=== PATIENT | female | born 1990 | race Caucasian/White ===

== ENCOUNTER 2016-08-06 21:38 | Emergency (ER) | payer MEDICAID ==
[~2016-08-06] VITALS: Ht 160 cm; Wt 100.0 kg
[2016-08-06 21:44] VITALS: Ht 160 cm; Wt 100.0 kg
[2016-08-07] MEDS ORDERED: SOD CHLORIDE 0.9% 1,000 ML IV STA (01:08)
[2016-08-07] MEDS ORDERED: morphine 4 MG/ML VIAL IV STA (01:08)
--- NOTE | 2016-08-07 01:14 | ERD ---
ER Documentation Chief Complaint Date/Time DATE: 08/07/16 TIME: 01:12 Chief Complaint BACK/ABD PAIN X3 DAYS +NAUSEA NO DIARRHEA. HPI 26-year-old female presents to emergency department for complaints of lower abdominal pain radiating into the left upper quadrant and bilateral lower back for 3 days, accompanied with nausea, describing the patient's sharp pain, 9/10 scale, not better or worse with anything. Patient denies any vomiting or diarrhea. Patient is the constipation. Patient did not take any medications to help with symptoms. Patient denies any fever or chills. ROS All systems reviewed and are negative except as per history of present illness. Medications Home Meds Reported Medications [none] Unknown Strength No Conflict Check 08/07/16 Allergies Allergies: Coded Allergies: No Known Allergy (Unverified , 08/06/16) PMhx/Soc Medical and Surgical Hx: pt denies Medical Hx, pt denies Surgical Hx FmHx Family History: No coronary disease, No diabetes, No other Physical Exam Vitals Vital Signs Date Time Temp Pulse Resp B/P Pulse Ox O2 Delivery O2 Flow Rate FiO2 08/06/16 21:44 98.7 84 20 160/90 98 Physical Exam GENERAL: The patient is well developed and appropriate for usual state of health, in no apparent distress. CHEST: Clear to auscultation bilaterally. There are no rales, wheezes or rhonchi. HEART: Regular rate and rhythm. No murmurs, clicks, rubs or gallops. No S3 or S4. ABDOMEN: Soft, generalized abdominal tenderness noted. Good bowel sounds. No rebound or guarding. No gross peritonitis. No gross organomegaly or masses. No Houston sign or McBurney point tenderness. BACK: No midline or flank tenderness. EXTREMITIES: Equal pulses bilaterally. There is no peripheral clubbing, cyanosis or edema. No focal swelling or erythema. Full range of motion. Grossly neurovascularly intact. NEURO: Alert and oriented. Cranial nerves 2-12 intact. Motor strength in all 4 extremities with 5/5 strength. Sensation grossly intact. Normal speech and gait. SKIN: There is no apparent rash or petechia. The skin is warm and dry. HEMATOLOGIC AND LYMPHATIC: There is no evidence of excessive bruising or lymphedema. No gross cervical, axillary, or inguinal lymphadenopathy. Result Diagram: 08/07/16 0135 08/07/16134 Results 24 hrs Laboratory Tests Test 08/07/16 01:15 08/07/16 01:35 Urine Color LT. YELLOW Urine Clarity CLEAR Urine pH 6.0 Urine Specific [place] 1.010 Urine Ketones NEGATIVE Urine Nitrite NEGATIVE Urine Bilirubin NEGATIVE Urine Urobilinogen 0.2 E.U./dL Urine Leukocyte Esterase NEGATIVE Urine Microscopic RBC 2-5/HPF Urine Microscopic WBC NONE SEEN/HPF Urine Squamous Epithelial Cells OCCASIONAL Urine Bacteria OCCASIONAL Urine Hemoglobin TRACE Urine Glucose NEGATIVE% Urine Total Protein NEGATIVE White Blood Count 13.310^3/ul Red Blood Count 4.9410^6/ul Hemoglobin 13.7g/dl Hematocrit 41.2% Mean Corpuscular Volume 83.4fl Mean Corpuscular Hemoglobin 27.7pg Mean Corpuscular Hemoglobin Concent 33.3g/dl Red Cell Distribution Width 13.2% Platelet Count 52345^3/UL Mean Platelet Volume 9.2fl Neutrophils % 61.6% Lymphocytes % 28.1% Monocytes % 8.5% Eosinophils % 0.9% Basophils % 0.5% Nucleated Red Blood Cells % 0.0/100WBC Neutrophils # 8.210^3/ul Lymphocytes # 3.810^3/ul Monocytes # 1.110^3/ul Eosinophils # 0.110^3/ul Basophils # 0.110^3/ul Nucleated Red Blood Cells # 0.010^3/ul Sodium Level 141mmol/L Potassium Level 3.5mmol/L Chloride Level 101mmol/L Carbon Dioxide Level 27mmol/L Anion Gap 17 Blood Urea Nitrogen 9mg/dl Creatinine 1.12mg/dl Glucose Level 91mg/dl Calcium Level 9.1mg/dl Total Bilirubin 0.2mg/dl Direct Bilirubin 0.00mg/dl Indirect Bilirubin 0.2mg/dl Aspartate Amino Transf (AST/SGOT) 26IU/L Alanine Aminotransferase (ALT/SGPT) 48IU/L Alkaline Phosphatase 89IU/L Total Protein 7.8g/dl Albumin 4.1g/dl Globulin 3.70g/dl Albumin/Globulin Ratio 1.10 Lipase 71U/L Current Medications Medications (Trade) Dose Ordered Sig/Zina Route PRN Reason Start Time Stop Time Status Last Admin Dose Admin Sodium Chloride (NS) 1,000 ml @ 1,000 mls/hr Q1H STAT IV 08/07/16 01:08 08/07/16 02:07 DC 08/07/16 01:55 Morphine Sulfate (morphine) 4 mg ONCE STAT IV 08/07/16 01:08 08/07/16 01:09 DC 08/07/16 01:56 Ondansetron HCl (Zofran Inj) 4 mg ONCE STAT IV 08/07/16 01:53 08/07/16 01:54 DC 08/07/16 01:55 Patient was given medication for pain here in emergency department, after treatment, patient verbalized feeling much better. Patient's pain is improved.Normal saline IV bolus was given here in emergency department for rehydration, patient tolerated IV fluids. PROCEDURE: CT Abdomen and pelvis without contrast. CLINICAL INDICATION: Abdominal pain. TECHNIQUE: CT scan of the abdomen and pelvis was performed on a multi- detector high-resolution CT scanner. Contiguous axial images were obtained from the lung bases to the ischial tuberosities without intravenous contrast. Coronal and sagittal reformatted images were also obtained. Images were reviewed on the PACS workstation. One or more of the following dose reduction techniques were used: - Automated exposure control. - Adjustment of the mA and/or kV according to patient size. - Use of iterative reconstruction technique. Exam CTD/vol = 23.33 mGy. Total exam DLP = 1526.71 mGy-cm. COMPARISON: None. FINDINGS: Evaluation of the lung bases demonstrates minimal bibasilar atelectasis. Abdomen: The liver is normal in size and diffusely low in attenuation consistent with fatty infiltration. There is no focal mass or dilatation of the biliary tree. The gallbladder is not distended. The spleen, pancreas and bilateral adrenal glands are within normal limits. Bilateral kidneys are normal in size with no contour deforming mass identified. There is a 1 mm calculus within the lower pole of the left kidney. There is mild left-sided hydronephrosis. There is no retroperitoneal adenopathy. The abdominal aorta is of normal caliber. There is no abnormal bowel wall thickening or distension. There is no bowel obstruction or free air. A normal appendix is identified. There is no diverticulosis or diverticulitis. There is no ascites. Pelvis: The bladder is unremarkable. There is a 5 x 4 mm calculus at the left ureterovesicular junction. The uterus and adnexa are within normal limits. There is an intrauterine device within the lower uterine segment. There is no significant pelvic adenopathy or free fluid. Evaluation of the osseous structures demonstrates no suspicious lytic or blastic lesion. IMPRESSION: Left ureterovesicular junction 5 x 4 mm calculus with mild left-sided hydronephrosis. Left renal calculus. Fatty infiltration of the liver. Intrauterine device within the lower uterine segment. .Stepan Morejon MD, MD Date Time Electronically viewed and signed by .Stepan Morejon MD, MD on 08/07/2016 03:18 .T/ CC: LAINE JUAREZ NP Procedures/MDM Medical Decision Making: Patient and this was like is consistent with a left renal colic. No severe hydronephrosis noted. No symptoms of any infected stone. There is low suspicion for abdominal emergencies at this time. Patients abdominal exam is normal at this time. Patients radiology exam does not show any abdominal emergencies at this time. There is low suspicion for appendicitis , cholecystitis, abdominal aortic aneurysms or peritonitis at this time. There is low suspicion for sepsis. Patient appears well and is hemodynamically stable. Disposition: Home. Condition: Stable Prescription Perkins, tamsulosin, Pyridium, Zofran Instructions: Patient is advised to take medications as prescribed. Patient is advised to rest, increase fluid intake and do urologist specialist regarding symptoms. Patient is advised that if symptoms are worse, severe abdominal pain, uncontrolled vomiting, high fever, severe flank pain, worst signs and symptoms, to return to the emergency department immediately. Otherwise, patient can follow up with primary care doctor in 5-7 days. Departure Diagnosis: Primary Impression: Renal colic on left side Condition: Stable Patient Instructions: Kidney Stone W/ Colic Additional Instructions: Patient is advised to take medications as prescribed. Patient is advised to rest, increase fluid intake and do urologist specialist regarding symptoms. Patient is advised that if symptoms are worse, severe abdominal pain, uncontrolled vomiting, high fever, severe flank pain, worst signs and symptoms, to return to the emergency department immediately. Otherwise, patient can follow up with primary care doctor in 5-7 days. LAINE JUAREZ NP August 07, 2016 01:14
[2016-08-07 01:50] LABS: ADD SCAN DIFF NO
[2016-08-07] MEDS ORDERED: ONDANSETRON 4 MG INJ IV STA (01:53)
[2016-08-07 01:56] LABS: BASOPHIL # 0.1 10^3/ul (0.0-0.1); BASOPHILS % 0.5 % (0.0-2.0); EOSINOPHILS # 0.1 10^3/ul (0.0-0.5); EOSINOPHILS % 0.9 % (0.0-7.0); HEMATOCRIT 41.2 % (37.0-47.0); HEMOGLOBIN 13.7 g/dl (12.0-16.0); LYMPHOCYTES # 3.8 10^3/ul (0.8-2.9); LYMPHOCYTES % 28.1 % (15.0-51.0); MEAN CORPUSCULAR HEMOGLOBIN 27.7 pg (29.0-33.0); MEAN CORPUSCULAR HGB CONC 33.3 g/dl (32.0-37.0); MEAN CORPUSCULAR VOLUME 83.4 fl (82.0-101.0); MEAN PLATELET VOLUME 9.2 fl (7.4-10.4); MONOCYTE # 1.1 10^3/ul (0.3-0.9); MONOCYTES % 8.5 % (0.0-11.0); NEUTROPHIL # 8.2 10^3/ul (1.6-7.5); NEUTROPHILS % 61.6 % (39.0-77.0); PLATELET COUNT 267 10^3/UL (140-415); RED BLOOD COUNT 4.94 10^6/ul (4.20-5.40); RED CELL DISTRIBUTION WIDTH 13.2 % (11.5-14.5); WHITE BLOOD COUNT 13.3 10^3/ul (4.8-10.8)
[2016-08-07 01:58] LABS: ADD UMIC YES; URINE BILIRUBIN (Dip) NEGATIVE (NEGATIVE); URINE BLOOD (Dip) TRACE (NEGATIVE); URINE COLOR LT. YELLOW (YELLOW); URINE GLUCOSE (Dip) NEGATIVE (NEGATIVE); URINE KETONES (Dip) NEGATIVE (NEGATIVE); URINE LEUKOCYTE ESTERASE (Dip) NEGATIVE (NEGATIVE); URINE NITRITE (Dip) NEGATIVE (NEGATIVE); URINE TOTAL PROTEIN (Dip) NEGATIVE (NEGATIVE); URINE UROBILINOGEN (Dip) 0.2 E.U./dL (0.1-1.0)
[2016-08-07 02:10] LABS: SQUAMOUS EPITHELIAL CELL,UR OCCASIONAL
[2016-08-07 02:11] LABS: BACTERIA,URINE OCCASIONAL
[2016-08-07 02:35] LABS: ALBUMIN 4.1 g/dl (3.3-4.9)
[2016-08-07 02:36] LABS: POTASSIUM 3.5 mmol/L (3.5-5.1)
[2016-08-07 02:38] LABS: ALBUMIN/GLOBULIN RATIO 1.1; BILIRUBIN,INDIRECT 0.2 mg/dl (0-1.1); BILIRUBIN,TOTAL 0.2 mg/dl (0.2-1.3); CREATININE 1.12 mg/dl (0.44-1.00); TOTAL PROTEIN 7.8 g/dl (6.1-8.1)
[2016-08-07 02:39] LABS: CALCIUM 9.1 mg/dl (8.4-10.2)
--- NOTE | 2016-08-07 03:18 | RADRPT ---
PROCEDURE: CT Abdomen and pelvis without contrast. CLINICAL INDICATION: Abdominal pain. TECHNIQUE: CT scan of the abdomen and pelvis was performed on a multi-detector high-resolution CT scanner. Contiguous axial images were obtained from the lung bases to the ischial tuberosities wit hout intravenous contrast. Coronal and sagittal reformatted images were also obtained. Images were reviewed on the PACS workstation. One or more of the following dose reduction techniques were used: - Automated exposure control. - Adjustment of the mA and/or kV according to patient size. - Use of iterative reconstruction technique. Exam CTD/vol = 23.33 mGy. Total exam DLP = 1526.71 mGy-cm. COMPARISON: None. FINDINGS: Evaluation of the lung bases demonstrates minimal bibasilar atelectasis. Abdomen: The liver is normal in size and diffusely low in attenuation consistent with fatty infiltr ation. There is no focal mass or dilatation of the biliary tree. The gallbladder is not distended. The spleen, pancreas and bilateral adrenal glands are within normal limits. Bilateral kidneys are normal in size with no contour deforming mass identified. There is a 1 mm calculus within the lowe r pole of the left kidney. There is mild left-sided hydronephrosis. There is no retroperitoneal ad enopathy. The abdominal aorta is of normal caliber. There is no abnormal bowel wall thickening or distension. There is no bowel obstruction or free air . A normal appendix is identified. There is no diverticulosis or diverticulitis. There is no asci mare. Pelvis: The bladder is unremarkable. There is a 5 x 4 mm calculus at the left ureterovesicular junc tion. The uterus and adnexa are within normal limits. There is an intrauterine device within the l ower uterine segment. There is no significant pelvic adenopathy or free fluid. Evaluation of the osseous structures demonstrates no suspicious lytic or blastic lesion. IMPRESSION: Left ureterovesicular junction 5 x 4 mm calculus with mild left-sided hydronephrosis. Left renal calculus. Fatty infiltration of the liver. Intrauterine device within the lower uterine segment. .Stepan Morejon MD, Date Time Electronically viewed and signed by .Stepan Morejon MD, on 08/07/2016 03:18 .T/
[2016-08-07] MEDS ORDERED: TAMS-14 PO (03:39)
[2016-08-07] MEDS ORDERED: HYDR-906 PO (03:39)
[2016-08-07] MEDS ORDERED: ONDA4TAB14 PO (03:39)
[2016-08-07] MEDS ORDERED: PHEN-538 PO (03:39)
[2016-08-07 04:25] VITALS: BP 131/79; PULSE 80; RESP 16
== END 2016-08-07 04:27 | disposition home or self-care (01) ==
LOC: FTE 21:38
DX: N23 Unspecified renal colic (principal); R11.0 Nausea
CPT/HCPCS: 74176; 80053; 81001; 83690; 85025; J2270; J2405; J7030; 36415; 96374; 96375